=== PATIENT | female | born 1945 | race Caucasian/White ===

== ENCOUNTER 2021-06-27 09:24 | Emergency (ER) | payer OTHER ==
[~2021-06-27] VITALS: Ht 167.6 cm; Wt 69.4 kg
[~2021-06-27 09:24] MED LIST: LIPITOR 10MG; LIPITOR20 MG PO
[2021-06-27] MEDS ORDERED: METOPROLOL SUC100 MG PO (09:37)
[2021-06-27] MEDS ORDERED: AMLODIPINE BESYL5 MG PO (09:38)
[2021-06-27] MEDS ORDERED: LIPITOR20 MG PO (09:41)
[2021-06-27] MEDS ORDERED: CIPRO500 MG PO (11:51)
== END 2021-06-27 12:28 | disposition home or self-care (01) ==
LOC: ER 09:24
DX: R30.0 Dysuria (principal); N39.0 Urinary tract infection, site not specified

== ENCOUNTER 2021-12-22 09:44 | Emergency (ER) | payer OTHER ==
[~2021-12-22] VITALS: Ht 162.6 cm; Wt 65.8 kg
[~2021-12-22 09:44] MED LIST changes: +AMLODIPINE BESYL5 MG PO; +CIPRO500 MG PO; +METOPROLOL SUC100 MG PO
== END 2021-12-22 10:41 | disposition home or self-care (01) ==
LOC: ER 09:44
DX: S60.561A Insect bite (nonvenomous) of right hand, initial encounter (principal); W57.XXXA Bitten or stung by nonvenomous insect and other nonvenomous arthropods, initial encounter; Y93.89 Activity, other specified; Y92.019 Unspecified place in single-family (private) house as the place of occurrence of the external cause